=== PATIENT | female | born 1935 | race Caucasian/White ===

== ENCOUNTER 2023-08-13 21:50 | Emergency (ER) | payer OTHER, SELFPAY ==
[2023-08-13 21:50] VITALS: BMI 25.4
[2023-08-13 21:56] VITALS: BP 196/110
[2023-08-13 22:09] VITALS: BP 165/123
[2023-08-13 22:11] LABS: Urine Albumin Negative (Neg - Trace); Urine Bilirubin Negative (Negative); Urine Character Clear (Clear); Urine Color Yellow; Urine Glucose Negative (Negative); Urine Ketone Negative (Negative); Urine Leukocyte Negative (Negative); Urine Nitrite Negative (Negative); Urine Occult Blood Negative (Negative); Urine Specific Gravity 1.015 (<1.030); Urine Urobilinogen Negative (Neg - 1+)
[2023-08-13 22:35] LABS: % Basophils 0.5 % (0-2); % Immature Granulocytes 0.2 % (0-0.5); % Lymphocytes 19.5 % (20.5-51.1); % Monocytes 7.3 % (1.7-9.3); % Neutrophils 72.5 % (42.2-75.2); Absolute Lymphocytes 1.7 10^3/uL (1.2-3.4); Absolute Monocytes 0.6 10^3/uL (0.1-0.6); Absolute Neutrophils 6.2 10^3/uL (1.4-6.5); Hematocrit 39.5 % (37.0-47.0); Hemoglobin 13.6 g/dL (12.0-16.0); Mean Corp Hgb Conc. 34.4 g/dL (33.0-37.0); Mean Corpuscular Hgb 30.2 pg (27.0-31.0); Mean Corpuscular Volume 87.8 fL (81.0-99.0); Mean Platelet Volume 9.6 fL (7.4-10.4); Nucleated Red Blood Cells % 0 %; Platelet Count 298 10^3/uL (130-400); Red Cell Dist. Width 12.8 % (11.5-14.5); White Blood Cell Count 8.6 10^3/uL (4.8-10.8)
--- NOTE | 2023-08-13 22:39 | ED.GENMED ---
History of Present Illness
General
Chief Complaint: Dizziness
Source: patient and family
Exam Limitations: none
Time Seen by Provider: 08/13/23 22:11
Nursing documentation reviewed up to this point in time: agreed with
Travel History
Have you had any contact with someone who has COVID-19?: No
Do you have any symptoms of coronavirus? Fever > 100 degrees, chills, cough, shortness of breath, sore throat, loss of taste or smell, muscle aches, or headache?: No
History of Present Illness
History of Present Illness:
Pleasant 88-year-old female presents with dizziness. Around 8 PM this evening she got up and felt dizzy. She lowered herself to the ground because she felt off balance. At that time patient had chest pressure. She noted that her blood pressure
was very high. She took one of her Xanax and losartan. She has been inconsistent with her Lasix but took 20 mg of Lasix this evening. Upon arrival her blood pressure was elevated but her symptoms had resolved. Denies any current chest pain.
Denies shortness of breath.
Vital signs are stable. Patient not hypoxic
Nursing note reviewed. I agree with nursing documentation up to this point in time.
Home Meds and allergies reviewed.
NUMBER AND COMPLEXITY OF PROBLEMS ADDRESSED AT THE ENCOUNTER
� Chronic conditions affecting care: Heart murmur, hypertension, migraine headaches
� Acute Exacerbation and/or Progression of Chronic Illness: Hypertension
� Differential Diagnosis includes: Vasovagal syncope, posterior CVA, dizziness
AMOUNT AND/OR COMPLEXITY OF DATA TO BE REVIEWED AND ANALYZED
I performed an independent evaluation of the following and my interpretation is:
EKG: EKG shows normal sinus rhythm rate 89 with normal intervals, normal axis. No evidence of acute ischemia present. EKG, when compared to symptoms 2022 shows improvement. PVCs are now absent.
CT:
X-rays:
Ultrasound:
Laboratory Studies: Troponin is negative. BUN is slightly elevated.
Other:
Review of other/old records:
Clinical information was obtained by an independent historian:
Prescriptions/Medications Considered but not given:
Further testing considered but not performed:
RISK OF COMPLICATIONS AND/OR MORBIDITY OR MORTALITY OF PATIENT MANAGEMENT
Social determinants of health affecting care: Good Social Support son present at the bedside
Discussion with other providers:
Escalation of care including admission/observation vs risk of discharge considered:
CRITICAL CARE NOTE:
Total Time (exclusive of procedures):
Update:
Past History
Past History
ED Past Medical History: Hypercholesterolemia and Hypothyroidism
ED Past Surgical History: Cholecystectomy and Gynecological
Review of Systems
Review of Systems
Allergies reviewed?: Yes
Other source history: family
All Other Systems: ROS reviewed and negative except as documented in HPI and ROS
Constitutional: Reports no symptoms
EENT: Reports no symptoms
Respiratory: Reports no symptoms
Cardiac: Reports no symptoms
ABD/GI: Reports no symptoms
: Reports no symptoms
Musculoskeletal: Reports no symptoms
Skin: Reports no symptoms
Neurological: Reports dizzy
Endocrine: Reports no symptoms
Hematologic/Lymphatic: Reports no symptoms
Psychiatric: Reports no symptoms
Phy Exam
General Physical Exam
General Presentation: well appearing and no apparent distress
General Skin: warm and dry
General Habitus: normal
General Mental: alert
General Hydration: appears well hydrated
ENT Exam
ENT Exam: EOMI, pharynx normal, neck supple and normocephalic
Eye Exam
Eye Exam: PERRL, cornea clear and conjunctiva normal
Cardiovascular Exam
Cardiovascular Exam: regular rate/rhythm, no edema, no murmur and normal peripheral pulses
Pulmonary Exam
Pulmonary Exam: lungs clear, no respiratory distress, no rales, no crackles, no rhonchi, no stridor, no wheezing and no cough
Gastrointestinal Exam
Gastrointestinal Exam: normal bowel sounds, non tender, soft, no organomegaly, no pulsatile mass and non distended
Neurological Exam
Neurological Exam: alert, oriented x3, no motor deficits and speech normal
Musculoskeletal Exam
Musculoskeletal Exam: full ROM and no edema
Skin Exam
Skin Exam: normal color, warm/dry, no rash and no petechia
Psychiatric Exam
Psychiatric Exam: normal mood/affect
Course
Orders/Labs/Results
Orders:
Orders
08/13/23 22:01
Electrocardiogram (*1) Urgent
Reason for Study: Hypertension, Benign
Cardiology Consult: Unknown
EKG- Treatment ONCE
08/13/23 22:06
Urinalysis Reflex To Culture Urgent
Date Specimen was Collected: 08/13/23
Time Specimen was Collected: 22:01
08/13/23 22:23
CT Head W/o Iv Contrast Urgent
Comment:
Reason For Exam: dizziness, near symcope
08/13/23 22:25
Complete Blood Count/With Diff Urgent
Comprehensive Metabolic Panel Urgent
Prothrombin Time Urgent
Troponin I Urgent
08/14/23 00:02
Orthostatic VS- Treatment ONCE
Abnormal Lab Results
08/13/23
22:25
Lymphocytes % 19.5 L %
(20.5-51.1)
BUN 21 H mg/dl
(7-17)
Glucose 151 H mg/dl
(70-99)
08/13/23 22:25
08/13/23 22:25
Vital Signs
Initial and Last Documented VS:
Initial Vital Signs
Temp Pulse Resp BP Pulse Ox
97.8 F 110 20 196/110 95
08/13/23 21:56 08/13/23 21:56 08/13/23 21:56 08/13/23 21:56 08/13/23 21:56
Last Documented Vital Signs
Temp Pulse Resp BP Pulse Ox
97.8 F 77 19 144/66 94
08/13/23 21:56 08/14/23 03:15 08/14/23 03:15 08/14/23 03:00 08/14/23 02:30
*Critical Care Note
Total Time (30-74mins, 75-104mins- exclusive of procedures): Not Applicable
Update Note
Update Note:
CT HEAD
IMPRESSION:
No acute intracranial hemorrhage, mass effect, or midline shift.
Moderate global volume loss and chronic small vessel ischemic white matter change.
No large territory infarct.
The mastoids are clear.
08/14/2023 0303 AM: Patient feeling much better. No acute distress. Blood pressure is more reasonable. Patient will be discharged home to continue current blood pressure medications.
ED Attending Note
-
Portions of this chart may have been created with voice recognition software.� Occasional wrong word or��sound alike� substitutions may have occurred due to the inherent limitations of voice recognition software.
Discharge Plan
Departure
Patient Disposition: Home (Routine Discharge)
Date of Disposition: 08/14/23
Time of Disposition: 03:03
Patient with high blood pressure during this ER visit?: Yes
Condition: Good
Discharge Problem:
Hypertension, Dizziness
Instructions: High Blood Pressure (DC), Dizziness, BLOOD PRESSURE
Prescriptions:
No Action
cetirizine 10 mg Tablet
10 mg PO DAILY
fluoxetine 10 mg Tablet
10 mg PO DAILY
levothyroxine 75 mcg Tablet
75 mcg PO DAILY
alprazolam [Xanax] 0.25 mg Tablet
0.25 mg PO HS
diltiazem HCl 120 mg Tablet
120 mg PO DAILY
losartan 25 mg Tablet
25 mg PO QPM
furosemide [Lasix] 20 mg Tablet
20 mg PO DAILY
melatonin 10 mg Tablet
10 mg PO HS
Protonix
10 mg PO DAILY
Vitamin K + D3
1 cap PO DAILY
Referrals:
Ben Wall, [Family Provider] -
Activity Restrictions/Additional Instructions:
It was a pleasure meeting you and taking part in your care. We hope for your continued healing and wellness.
Please read discharge instructions in their entirety. However, they are for general education and may not describe your exact diagnosis at discharge. Information on your ER visit and medical conditions were discussed with you along with appropriate
follow up information...
If indicated, please take your medications as instructed and indicated on discharge paperwork.
Please schedule a follow up appointment as directed. Call to schedule an appointment
Please return to the emergency department with ANY change in, persisting, or worsening of symptoms. If any of your symptoms do not improve, or persist, or become more severe within 6-12 hours, please return to the emergency department for further
care.
Please return to the emergency department if you develop a headache, neck pain/stiffness, fever greater than 100.4F, chest pain, shortness of breath, persistent nausea, vomiting, slurred speech, difficulty walking, numbness/tingling, weakness, signs
of infection or any other symptoms that are worrisome to you.
If you have any questions or concerns please do not hesitate to call the Hospital at or E-mail me directly at [email or web address]
Interventions
Interventions:
*Risk Screen - Suicide Last Done: 08/14/23 03:50
*General Assessment Last Done: 08/13/23 22:00
*Neglect/Abuse Screening Last Done: 08/13/23 22:00
ED- Fall Risk Assessment Last Done: 08/13/23 22:00
*ED COVID-19 Vaccine History Last Done: 08/13/23 22:00
*Nursing Disposition Last Done: 08/14/23 03:50
ED- Pulmonary Assessment Last Done: 08/13/23 23:10
ED- Neurological Assessment Last Done: 08/13/23 23:10
ED- Cardiac Assessment Last Done: 08/13/23 23:10
ED Swallowing Screen Last Done: 08/14/23 03:43
Discharge Date and Time
Discharge Date/Time: 08/14/23 03:50
[2023-08-13 22:45] LABS: INR 0.92; PT 12.2 Sec (11.4-14.6)
[2023-08-13 22:47] LABS: ALT (SGPT) 24 U/L (0-35); AST (SGOT) 31 U/L (14-36); Albumin 4.7 g/dl (3.5-5.0); Alkaline Phosphatase 88 U/L (38-126); Blood Urea Nitrogen 21 mg/dl (7-17); Calcium 9.8 mg/dl (8.4-10.2); Carbon Dioxide 27 mmol/L (22-30); Chloride 106 mmol/L (98-107); Glucose 151 mg/dl (70-99); Potassium 3.8 mmol/L (3.5-5.1); Sodium 140 mmol/L (135-145); Total Bilirubin 0.5 mg/dl (0.2-1.3); Total Protein 7.7 g/dl (6.3-8.2); eGFR > 60.00
[2023-08-13 22:59] LABS: Troponin I < 0.012 ng/ml
[2023-08-13 23:01] VITALS: BP 157/92
[2023-08-14] VITALS (8 sets, daily range): BP systolic 122–167; BP diastolic 63–82; PULSE 85–101
== END 2023-08-14 03:50 | disposition home or self-care (01) ==
LOC: EMR 21:50
PROVIDERS: Emergency Medicine; EMERGENCY PHYSICIAN Student in an Organized Health Care Education/Training Program; FAMILY PHYSICIAN Family Medicine
DX: R42 Dizziness and giddiness (principal); R07.89 Other chest pain; R01.1 Cardiac murmur, unspecified; I10 Essential (primary) hypertension; G43.909 Migraine, unspecified, not intractable, without status migrainosus
CPT/HCPCS: 99285; 70450; 80053; 81003; 84484; 85025; 85610; 93005

== ENCOUNTER → 2023-10-18 08:18 | Outpatient (REF) | payer OTHER, SELFPAY | LOC: DHCBC/DCA 08:18 | PROVIDERS: ATTENDING PHYSICIAN Internal Medicine Cardiovascular Disease | DX: I49.3 Ventricular premature depolarization (principal); I10 Essential (primary) hypertension; I35.8 Other nonrheumatic aortic valve disorders; R07.89 Other chest pain | CPT/HCPCS: 78452; 93017; A9500; J2785 ==

== ENCOUNTER → 2023-11-04 09:08 | Outpatient (REF) | payer OTHER, SELFPAY | LOC: HWRCS 09:08 | PROVIDERS: ATTENDING PHYSICIAN Internal Medicine Cardiovascular Disease; FAMILY PHYSICIAN Physician Assistant Medical | DX: I10 Essential (primary) hypertension (principal); I49.3 Ventricular premature depolarization; I35.8 Other nonrheumatic aortic valve disorders; R07.89 Other chest pain | CPT/HCPCS: 93306 ==

== ENCOUNTER → 2023-12-03 10:04 | Outpatient (REF) | payer OTHER, SELFPAY | LOC: HWRAD 10:04 | PROVIDERS: ATTENDING PHYSICIAN Internal Medicine Cardiovascular Disease; FAMILY PHYSICIAN Physician Assistant Medical | DX: R06.02 Shortness of breath (principal) | CPT/HCPCS: 71046 ==

== ENCOUNTER → 2023-12-12 10:35 | Outpatient (REF) | payer OTHER, SELFPAY | LOC: HWRAD 10:35 | PROVIDERS: ATTENDING PHYSICIAN Family Medicine | DX: R31.9 Hematuria, unspecified (principal); R10.32 Left lower quadrant pain | CPT/HCPCS: 74177; Q9967 ==

== ENCOUNTER → 2024-01-29 10:26 | Outpatient (REF) | payer OTHER, SELFPAY | LOC: HWRAD 10:26 | PROVIDERS: ATTENDING PHYSICIAN Physician Assistant Medical | DX: R10.32 Left lower quadrant pain (principal) | CPT/HCPCS: 74018 ==

== ENCOUNTER 2024-05-21 06:31 | Day surgery (SDC) | payer OTHER, SELFPAY ==
[2024-05-20 11:10] LABS: Hemoglobin 13.5 g/dL (12.0-16.0); Mean Corp Hgb Conc. 32.1 g/dL (33.0-37.0); Mean Corpuscular Hgb 30.5 pg (27.0-31.0); Mean Corpuscular Volume 94.8 fL (81.0-99.0); Mean Platelet Volume 9.4 fL (7.4-10.4); Platelet Count 262 10^3/uL (130-400); Red Blood Cell Count 4.43 10^6/uL (4.20-5.40); Red Cell Dist. Width 12.6 % (11.5-14.5); White Blood Cell Count 9.6 10^3/uL (4.8-10.8)
[2024-05-20 13:21] VITALS: BMI 24.3
[2024-05-21] VITALS (10 sets, daily range): BP systolic 112–165; BP diastolic 56–80; BMI 24.3
[2024-05-21] MEDS: CYSVIEW KIT 100 MG INTRAVES (09:00)
[2024-05-21] MEDS: SYRINGE NON-PUMP 50 MG IRRIG ×2 (11:55→11:56)
[2024-05-21] MEDS: SYRINGE NON-PUMP 50 ML IRRIG ×2 (11:55→11:56)
[2024-05-21] MEDS: MORPHINE SULFATE 1 MG IV (11:58)
== END 2024-05-21 15:00 | disposition home or self-care (01) ==
LOC: SDS 06:31
PROVIDERS: ATTENDING PHYSICIAN Specialist; FAMILY PHYSICIAN Physician Assistant Medical
DX: C67.4 Malignant neoplasm of posterior wall of bladder (principal); Z85.51 Personal history of malignant neoplasm of bladder
CPT/HCPCS: 52234; 88307; 36415; 85027; A9589

== ENCOUNTER → 2024-10-28 11:10 | Outpatient (REF) | payer OTHER, SELFPAY | LOC: HWRAD 11:10 | PROVIDERS: ATTENDING PHYSICIAN Physician Assistant Medical | DX: Z12.31 Encounter for screening mammogram for malignant neoplasm of breast (principal); M85.80 Other specified disorders of bone density and structure, unspecified site | CPT/HCPCS: 77063; 77067; 77080 ==

== ENCOUNTER → 2024-11-10 11:32 | Outpatient (REF) | payer OTHER, SELFPAY ==
[2024-11-10 13:19] LABS: ALT (SGPT) 24 U/L (0-35); AST (SGOT) 26 U/L (14-36); Albumin 4.3 g/dl (3.5-5.0); Alkaline Phosphatase 75 U/L (38-126); Blood Urea Nitrogen 20 mg/dl (7-17); Calcium 10.1 mg/dl (8.4-10.2); Carbon Dioxide 28 mmol/L (22-30); Chloride 110 mmol/L (98-107); Glucose 120 mg/dl (70-99); Potassium 4.7 mmol/L (3.5-5.1); Sodium 140 mmol/L (135-145); Total Bilirubin 0.6 mg/dl (0.2-1.3); Total Protein 7.2 g/dl (6.3-8.2); eGFR > 60.00
== END ==
LOC: RAD 11:32
PROVIDERS: ATTENDING PHYSICIAN Physician Assistant Medical
DX: R10.32 Left lower quadrant pain (principal); Z87.19 Personal history of other diseases of the digestive system
CPT/HCPCS: 36415; 74177; 80053; Q9967

== ENCOUNTER → 2025-02-26 10:27 | Outpatient (REF) | payer OTHER, SELFPAY | LOC: MRI 3T 10:27 | PROVIDERS: ATTENDING PHYSICIAN Internal Medicine Gastroenterology; FAMILY PHYSICIAN Physician Assistant Medical | DX: R19.8 Other specified symptoms and signs involving the digestive system and abdomen (principal); K52.9 Noninfective gastroenteritis and colitis, unspecified | CPT/HCPCS: 72197; 74183; A9585 ==